=== PATIENT | female | born 1955 | race Caucasian/White ===

== ENCOUNTER 2017-02-01 16:06 | Emergency (ER) | payer SELFPAY ==
[~2017-02-01] VITALS: Ht 167.6 cm; Wt 127.8 kg
[2017-02-01 16:07] VITALS: BP 157/96
== END 2017-02-01 17:59 | disposition home or self-care (01) ==
LOC: ED 17:15
DX: K02.9 Dental caries, unspecified (principal); I10 Essential (primary) hypertension
CPT/HCPCS: 99283

== ENCOUNTER 2018-12-29 11:09 | Emergency (ER) | payer MEDICAID ==
[~2018-12-29] VITALS: Ht 167.6 cm; Wt 120.6 kg
[2018-12-29 12:13] LABS: BASOPHILS # (AUTO) 0.03 x10^3/uL (0-0.1); BASOPHILS % (AUTO) 0 % (0-1); EOSINOPHILS # (AUTO) 0.32 x10^3/uL (0-0.4); EOSINOPHILS % (AUTO) 3 % (1-7); LYMPHOCYTES # (AUTO) 2.51 x10^3/uL (1-3.4); LYMPHOCYTES % (AUTO) 20 % (22-44); MD NO; MEAN CORPUSCULAR HGB CONC 33.2 g/dL (32.4-35.8); MEAN CORPUSCULAR VOLUME 93.3 fL (80-100); MEAN PLATELET VOLUME 8.5 fL (7.4-10.4); MONOCYTES # (AUTO) 0.74 x10^3/uL (0.2-0.8); MONOCYTES % (AUTO) 6 % (2-9); NEUTROPHILS % (AUTO) 72 % (42-75); PLATELET COUNT 213 x10^3/uL (130-400); RED BLOOD COUNT 4.69 x10^6/uL (3.82-5.3); RED CELL DISTRIBUTION WIDTH 13.4 % (9.6-15.2)
--- NOTE | 2018-12-29 12:13 | NUR ---
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
--- NOTE | 2018-12-29 12:22 | NUR ---
PT TO ED FOR PRODUCTIVE COUGH X3 WEEKS. PT STATES COUGHING UP GREEN/YELLOW PHLEGM. PT CONNECTED TO MONITORS. VSS. EDMD PRESENT FOR ASSESSMENT. PIT ORDERS RECEIVED. LABS, CXR AND EKG COMPLETE. AWAITING FURTHER ORDERS.
[2018-12-29 12:30] LABS: ANION GAP 7 mmol/L (5-15); CALCIUM 8.9 mg/dL (8.5-10.1); CHLORIDE 107 mmol/L (98-107); CREATININE 1.04 mg/dL (0.55-1.02)
[2018-12-29 13:15] VITALS: BP 106/69
== END 2018-12-29 13:27 | disposition home or self-care (01) ==
LOC: ED 13:12
DX: J15.9 Unspecified bacterial pneumonia (principal); J41.1 Mucopurulent chronic bronchitis; I10 Essential (primary) hypertension
CPT/HCPCS: 36415; 71046; 80048; 85025; 93005; 99284

== ENCOUNTER 2021-04-09 12:04 | Inpatient (IN) | payer MEDICAID, OTHER ==
[~2021-04-09] VITALS: Ht 167.6 cm; Wt 108.7 kg
--- NOTE | 2021-04-09 12:28 | NUR ---
c/o chest tightness and feeling as she cannot get a deep breath x3 days, had right rotator cuff repair 1 week ago. SPO2 85% RA, + COUGH. PLACED ON 2L NC SPO2 90% NOW. DR CAZARES AT BEDSIDE.
[2021-04-09] MEDS ORDERED: SODIUM CHLORIDE FLUSH 10ML SYR IVF ONE (12:30)
[2021-04-09 12:53] LABS: BASOPHILS % (AUTO) 1 % (0-1); EOSINOPHILS % (AUTO) 0 % (1-7); LYMPHOCYTES % (AUTO) 17 % (22-44); MEAN CORPUSCULAR HEMOGLOBIN 31.2 pg (27.0-34.8); MEAN CORPUSCULAR HGB CONC 34.2 g/dL (32.4-35.8); MEAN PLATELET VOLUME 9.1 fL (7.4-10.4); MONOCYTES % (AUTO) 6 % (2-9); NEUTROPHILS % (AUTO) 76 % (42-75); PLATELET COUNT 154 x10^3/uL (130-400); RED BLOOD COUNT 4.63 x10^6/uL (3.82-5.3); RED CELL DISTRIBUTION WIDTH 13.4 % (9.6-15.2)
[2021-04-09 13:02] LABS: ALBUMIN 2.4 g/dL (3.4-5.0); ANION GAP 13 mmol/L (5-15); CALCIUM 8.1 mg/dL (8.5-10.1); CHLORIDE 98 mmol/L (98-107)
[2021-04-09 13:08] LABS: ALANINE AMINOTRANSFERASE 30 U/L (12-78); ALKALINE PHOSPHATASE 71 U/L (45-117); BILIRUBIN,TOTAL 0.7 mg/dL (0.2-1.0); CREATININE 0.68 mg/dL (0.55-1.02); TOTAL PROTEIN 7.2 g/dL (6.4-8.2); TROPONIN I < 0.015 ng/mL (0.000-0.045)
--- NOTE | 2021-04-09 13:49 | NUR ---
Pt to CT for CTA. Pt requests to take home pain med hydrocodone/apap; Dr Guzman states okay for pt to take home pain med when she returns from CT. Addendum: 04/09/21 at 1352 by DOUG Pt unable to have CTA d/t recent shoulder surgery, immobilizer, unable to position pt correctly for CTA
--- NOTE | 2021-04-09 13:55 | NUR ---
CT DELAY; UNABLE TO MANIPULATE RT ARM TO FIT INTO THE CT GANTRY- TRIED TO CALL ER
[2021-04-09] MEDS ORDERED: MORPHINE SULFATE 4 MG/ML, 1ML ONE (14:16)
[2021-04-09] MEDS: MORPHINE SULFATE 4 MG/ML, 1ML IVPush PRN ×2 (14:22→15:19)
[2021-04-09] MEDS ORDERED: ONDANSETRON 2MG/ML, 2ML IVPush ONE (15:00)
--- NOTE | 2021-04-09 15:07 | NUR ---
pt returned from ct
[2021-04-09] MEDS ORDERED: OMNIPAQUE 350 MG/ML, 100ML BOTTLE ONE (15:16)
[2021-04-09] MEDS ORDERED: ONDANSETRON 2MG/ML, 2ML ONE (15:17)
[2021-04-09] MEDS ORDERED: CEFTRIAXONE 1,000 MG in DEXTROSE 5% 50 ML IVPB ONE (16:00)
[2021-04-09] MEDS ORDERED: DEXAMETHASONE 4 MG/ML, 1ML ONE ×2 (16:28→16:34)
[2021-04-09] MEDS ORDERED: ENALAPRILAT 1.25 MG/ML, 2ML IVPush PRN (16:30)
[2021-04-09] MEDS ORDERED: MELATONIN 5 MG TABLET PO PRN (16:30)
[2021-04-09] MEDS ORDERED: ONDANSETRON 2MG/ML, 2ML IVPush PRN (16:30)
[2021-04-09] MEDS ORDERED: THIAMINE 100MG TABLET PO ONE (16:30)
[2021-04-09] MEDS ORDERED: ONDANSETRON ODT 4 MG PO PRN (16:30)
[2021-04-09] MEDS ORDERED: DEXAMETHASONE 4 MG/ML, 1ML IV ONE (17:00)
[2021-04-09] MEDS ORDERED: AZITHROMYCIN 500 MG in SODIUM CHLORIDE 0.9% 250 ML IV SCH (17:00)
--- NOTE | 2021-04-09 17:07 | NUR ---
Nursing hand-off report given to OBDULIA Chopra; questions answered
[2021-04-09] MEDS: ASCORBIC ACID 500 MG TABLET PO SCH (18:13)
[2021-04-09 19:22] VITALS: BP 110/74
[2021-04-09] MEDS: ENOXAPARIN 40 MG/0.4 ML SQ SCH (20:48)
[2021-04-09] MEDS: FAMOTIDINE 20 MG TABLET PO SCH (20:49)
[2021-04-09] MEDS: INSULIN LISPRO 100 UNITS/ML, PEN SQ-INSULIN SCH (20:49)
[2021-04-10 00:41] VITALS: BP 140/81
[2021-04-10 05:55] LABS: BASOPHILS % (AUTO) 0 % (0-1); EOSINOPHILS % (AUTO) 0 % (1-7); LYMPHOCYTES % (AUTO) 21 % (22-44); MEAN CORPUSCULAR HEMOGLOBIN 31.5 pg (27.0-34.8); MEAN CORPUSCULAR HGB CONC 34.4 g/dL (32.4-35.8); MONOCYTES % (AUTO) 9 % (2-9); NEUTROPHILS % (AUTO) 71 % (42-75); PLATELET COUNT 174 x10^3/uL (130-400); RED BLOOD COUNT 4.36 x10^6/uL (3.82-5.3); RED CELL DISTRIBUTION WIDTH 13.6 % (9.6-15.2)
[2021-04-10 06:04] LABS: ANION GAP 7 mmol/L (5-15); CALCIUM 8.4 mg/dL (8.5-10.1); CHLORIDE 100 mmol/L (98-107); CREATININE 0.61 mg/dL (0.55-1.02)
[2021-04-10 07:54] VITALS: BP 128/78
[2021-04-10] MEDS: CHOLECALCIFEROL 1,000 UNIT TABLET PO SCH (10:09)
[2021-04-10] MEDS: ASCORBIC ACID 500 MG TABLET PO SCH ×2 (10:09→16:17)
[2021-04-10] MEDS: FAMOTIDINE 20 MG TABLET PO SCH ×2 (10:09→22:11)
[2021-04-10] MEDS: DEXAMETHASONE 4 MG/ML, 1ML IVPush SCH (10:09)
[2021-04-10] MEDS: GUAIFENESIN/DM 200-20MG, 10ML UDC PO PRN ×2 (10:09→16:18)
[2021-04-10] MEDS: ZINC SULFATE 220 MG CAPSULE PO SCH (10:10)
[2021-04-10] MEDS: INSULIN LISPRO 100 UNITS/ML, PEN SQ-INSULIN SCH ×4 (10:11→22:11)
[2021-04-10 13:17] VITALS: BP 119/72
[2021-04-10] MEDS ORDERED: REMDESIVIR 200 MG in SODIUM CHLORIDE 0.9% 100 ML IVPB ONE (14:00)
[2021-04-10] MEDS: metFORMIN 500 MG TABLET PO SCH (16:18)
[2021-04-10] MEDS: CEFTRIAXONE 1,000 MG in DEXTROSE 5% 50 ML IVPB SCH (18:27)
[2021-04-10 19:37] VITALS: BP 122/75
[2021-04-10] MEDS: ENOXAPARIN 40 MG/0.4 ML SQ SCH (22:10)
[2021-04-11 01:43] VITALS: BP 128/75
[2021-04-11 05:36] LABS: ALANINE AMINOTRANSFERASE 26 U/L (12-78); ALBUMIN 2.1 g/dL (3.4-5.0); ANION GAP 7 mmol/L (5-15); CHLORIDE 102 mmol/L (98-107); CREATININE 0.59 mg/dL (0.55-1.02)
[2021-04-11 05:38] LABS: ALKALINE PHOSPHATASE 65 U/L (45-117); BILIRUBIN,TOTAL 0.4 mg/dL (0.2-1.0); TOTAL PROTEIN 6.4 g/dL (6.4-8.2)
[2021-04-11] MEDS: metFORMIN 500 MG TABLET PO SCH ×2 (07:29→18:08)
[2021-04-11] MEDS: CHOLECALCIFEROL 1,000 UNIT TABLET PO SCH (07:29)
[2021-04-11] MEDS: ZINC SULFATE 220 MG CAPSULE PO SCH (07:29)
[2021-04-11] MEDS: ASCORBIC ACID 500 MG TABLET PO SCH ×2 (07:29→18:08)
[2021-04-11] MEDS: INSULIN LISPRO 100 UNITS/ML, PEN SQ-INSULIN SCH ×4 (07:29→21:37)
[2021-04-11] MEDS: GUAIFENESIN/DM 200-20MG, 10ML UDC PO PRN (07:29)
[2021-04-11] MEDS: DEXAMETHASONE 4 MG/ML, 1ML IVPush SCH (07:30)
[2021-04-11] MEDS: FAMOTIDINE 20 MG TABLET PO SCH ×2 (07:30→21:37)
[2021-04-11 08:08] VITALS: BP 106/69
[2021-04-11 14:04] VITALS: BP 136/78
[2021-04-11] MEDS: REMDESIVIR 100 MG in SODIUM CHLORIDE 0.9% 100 ML IVPB SCH (18:08)
[2021-04-11] MEDS: CEFTRIAXONE 1,000 MG in DEXTROSE 5% 50 ML IVPB SCH (19:05)
[2021-04-11 19:28] VITALS: BP 116/73
[2021-04-11] MEDS: ENOXAPARIN 40 MG/0.4 ML SQ SCH (21:35)
[2021-04-11] MEDS: INSULIN GLARGINE 100 UNITS/ML, PEN SQ-INSULIN SCH (21:36)
[2021-04-12 01:42] VITALS: BP 121/73
[2021-04-12 05:45] LABS: BASOPHILS % (AUTO) 0 % (0-1); EOSINOPHILS % (AUTO) 0 % (1-7); LYMPHOCYTES % (AUTO) 22 % (22-44); MEAN CORPUSCULAR HEMOGLOBIN 31.3 pg (27.0-34.8); MEAN CORPUSCULAR HGB CONC 34.7 g/dL (32.4-35.8); MEAN PLATELET VOLUME 9.5 fL (7.4-10.4); MONOCYTES % (AUTO) 9 % (2-9); NEUTROPHILS % (AUTO) 69 % (42-75); PLATELET COUNT 244 x10^3/uL (130-400); RED BLOOD COUNT 4.29 x10^6/uL (3.82-5.3); RED CELL DISTRIBUTION WIDTH 13.3 % (9.6-15.2)
[2021-04-12 05:49] LABS: HCT (SEDRATE) 38.9 % (34.6-47.8)
[2021-04-12 05:58] LABS: ALANINE AMINOTRANSFERASE 28 U/L (12-78); ALBUMIN 2.1 g/dL (3.4-5.0); ANION GAP 10 mmol/L (5-15); CALCIUM 8.2 mg/dL (8.5-10.1); CHLORIDE 103 mmol/L (98-107); CREATININE 0.52 mg/dL (0.55-1.02)
[2021-04-12 06:01] LABS: ALKALINE PHOSPHATASE 64 U/L (45-117); BILIRUBIN,TOTAL 0.5 mg/dL (0.2-1.0); TOTAL PROTEIN 6.3 g/dL (6.4-8.2)
[2021-04-12 06:08] LABS: C-REACTIVE PROTEIN, QUANT 2.2 mg/dL (0.02-0.49)
[2021-04-12] MEDS: DEXAMETHASONE 4 MG/ML, 1ML IVPush SCH (07:31)
[2021-04-12] MEDS: FAMOTIDINE 20 MG TABLET PO SCH ×2 (07:31→21:47)
[2021-04-12] MEDS: CHOLECALCIFEROL 1,000 UNIT TABLET PO SCH (07:31)
[2021-04-12] MEDS: metFORMIN 500 MG TABLET PO SCH ×2 (07:31→16:23)
[2021-04-12] MEDS: GUAIFENESIN/DM 200-20MG, 10ML UDC PO PRN ×2 (07:31→16:23)
[2021-04-12] MEDS: ASCORBIC ACID 500 MG TABLET PO SCH ×2 (07:31→16:23)
[2021-04-12] MEDS: ZINC SULFATE 220 MG CAPSULE PO SCH (07:32)
[2021-04-12] MEDS: INSULIN LISPRO 100 UNITS/ML, PEN SQ-INSULIN SCH ×4 (07:40→21:49)
[2021-04-12 08:16] VITALS: BP 96/64
[2021-04-12] MEDS ORDERED: POTASSIUM CHLORIDE 20 MEQ TAB.ER.PRT PO ONE (09:00)
[2021-04-12 14:47] VITALS: BP 128/74
[2021-04-12] MEDS: REMDESIVIR 100 MG in SODIUM CHLORIDE 0.9% 100 ML IVPB SCH (17:50)
[2021-04-12] MEDS: CEFTRIAXONE 1,000 MG in DEXTROSE 5% 50 ML IVPB SCH (19:40)
[2021-04-12] MEDS: ENOXAPARIN 40 MG/0.4 ML SQ SCH (21:47)
[2021-04-12] MEDS: INSULIN GLARGINE 100 UNITS/ML, PEN SQ-INSULIN SCH (21:48)
[2021-04-13 01:22] VITALS: BP 120/73
[2021-04-13 04:20] LABS: BASOPHILS % (AUTO) 0 % (0-1); EOSINOPHILS % (AUTO) 0 % (1-7); LYMPHOCYTES % (AUTO) 21 % (22-44); MEAN CORPUSCULAR HGB CONC 34.3 g/dL (32.4-35.8); MEAN PLATELET VOLUME 8.9 fL (7.4-10.4); MONOCYTES % (AUTO) 10 % (2-9); NEUTROPHILS % (AUTO) 69 % (42-75); PLATELET COUNT 260 x10^3/uL (130-400); RED BLOOD COUNT 4.34 x10^6/uL (3.82-5.3); RED CELL DISTRIBUTION WIDTH 13.4 % (9.6-15.2)
[2021-04-13 04:31] LABS: ALANINE AMINOTRANSFERASE 28 U/L (12-78); ALBUMIN 1.9 g/dL (3.4-5.0); ANION GAP 7 mmol/L (5-15); CHLORIDE 102 mmol/L (98-107); CREATININE 0.49 mg/dL (0.55-1.02)
[2021-04-13 04:38] LABS: ALKALINE PHOSPHATASE 63 U/L (45-117); BILIRUBIN,TOTAL 0.5 mg/dL (0.2-1.0); TOTAL PROTEIN 6.4 g/dL (6.4-8.2)
[2021-04-13 08:08] VITALS: BP 95/61
[2021-04-13] MEDS: INSULIN LISPRO 100 UNITS/ML, PEN SQ-INSULIN SCH ×4 (08:12→21:48)
[2021-04-13] MEDS: FAMOTIDINE 20 MG TABLET PO SCH ×2 (08:14→21:00)
[2021-04-13] MEDS: CHOLECALCIFEROL 1,000 UNIT TABLET PO SCH (08:14)
[2021-04-13] MEDS: ASCORBIC ACID 500 MG TABLET PO SCH ×2 (08:14→17:12)
[2021-04-13] MEDS: MAGNESIUM OXIDE 400 MG TABLET PO SCH ×2 (08:14→21:00)
[2021-04-13] MEDS: metFORMIN 500 MG TABLET PO SCH ×2 (08:14→17:12)
[2021-04-13] MEDS: DEXAMETHASONE 4 MG/ML, 1ML IVPush SCH (08:17)
[2021-04-13] MEDS: ZINC SULFATE 220 MG CAPSULE PO SCH (08:20)
[2021-04-13] MEDS: GUAIFENESIN ER 600 MG TABLET PO SCH ×2 (11:47→21:00)
[2021-04-13 12:59] VITALS: BP 119/73
[2021-04-13] MEDS: REMDESIVIR 100 MG in SODIUM CHLORIDE 0.9% 100 ML IVPB SCH (18:18)
[2021-04-13] MEDS: CEFTRIAXONE 1,000 MG in DEXTROSE 5% 50 ML IVPB SCH (19:40)
[2021-04-13 20:01] VITALS: BP 107/67
[2021-04-13] MEDS: ENOXAPARIN 40 MG/0.4 ML SQ SCH (21:48)
[2021-04-13] MEDS: INSULIN GLARGINE 100 UNITS/ML, PEN SQ-INSULIN SCH (21:49)
[2021-04-14 01:15] VITALS: BP 114/75
[2021-04-14 05:42] LABS: BASOPHILS % (AUTO) 0 % (0-1); EOSINOPHILS % (AUTO) 1 % (1-7); LYMPHOCYTES % (AUTO) 23 % (22-44); MEAN CORPUSCULAR HEMOGLOBIN 31.6 pg (27.0-34.8); MEAN CORPUSCULAR HGB CONC 34.9 g/dL (32.4-35.8); MEAN PLATELET VOLUME 9.1 fL (7.4-10.4); MONOCYTES % (AUTO) 8 % (2-9); NEUTROPHILS % (AUTO) 69 % (42-75); PLATELET COUNT 319 x10^3/uL (130-400); RED CELL DISTRIBUTION WIDTH 13.6 % (9.6-15.2)
[2021-04-14 05:46] LABS: ALBUMIN 2.4 g/dL (3.4-5.0); ANION GAP 9 mmol/L (5-15); CALCIUM 8.7 mg/dL (8.5-10.1); CHLORIDE 100 mmol/L (98-107)
[2021-04-14 05:55] LABS: ALANINE AMINOTRANSFERASE 29 U/L (12-78); ALKALINE PHOSPHATASE 71 U/L (45-117); BILIRUBIN,TOTAL 0.6 mg/dL (0.2-1.0); CREATININE 0.71 mg/dL (0.55-1.02); TOTAL PROTEIN 7.5 g/dL (6.4-8.2)
[2021-04-14] MEDS ORDERED: CETI10CA PO (06:14)
[2021-04-14] MEDS: CHOLECALCIFEROL 1,000 UNIT TABLET PO SCH (08:20)
[2021-04-14] MEDS: metFORMIN 500 MG TABLET PO SCH ×2 (08:20→16:52)
[2021-04-14] MEDS: INSULIN LISPRO 100 UNITS/ML, PEN SQ-INSULIN SCH ×4 (08:20→21:19)
[2021-04-14] MEDS: DEXAMETHASONE 4 MG/ML, 1ML IVPush SCH (08:20)
[2021-04-14] MEDS: ASCORBIC ACID 500 MG TABLET PO SCH ×2 (08:20→16:52)
[2021-04-14] MEDS: MAGNESIUM OXIDE 400 MG TABLET PO SCH ×2 (08:21→21:00)
[2021-04-14] MEDS: ZINC SULFATE 220 MG CAPSULE PO SCH (08:21)
[2021-04-14] MEDS: FAMOTIDINE 20 MG TABLET PO SCH ×2 (08:21→21:20)
[2021-04-14] MEDS: GUAIFENESIN ER 600 MG TABLET PO SCH ×2 (08:21→21:20)
[2021-04-14 09:38] VITALS: BP 101/66
[2021-04-14 13:26] VITALS: BP 96/59
[2021-04-14] MEDS: REMDESIVIR 100 MG in SODIUM CHLORIDE 0.9% 100 ML IVPB SCH (18:01)
[2021-04-14 18:56] VITALS: BP 108/69
[2021-04-14] MEDS: CEFTRIAXONE 1,000 MG in DEXTROSE 5% 50 ML IVPB SCH (19:49)
[2021-04-14] MEDS: ENOXAPARIN 40 MG/0.4 ML SQ SCH (21:19)
[2021-04-14] MEDS: INSULIN GLARGINE 100 UNITS/ML, PEN SQ-INSULIN SCH (21:20)
[2021-04-15 01:43] VITALS: BP 102/67
[2021-04-15] MEDS: INSULIN LISPRO 100 UNITS/ML, PEN SQ-INSULIN SCH ×4 (07:00→22:29)
[2021-04-15] MEDS: CHOLECALCIFEROL 1,000 UNIT TABLET PO SCH (09:00)
[2021-04-15 09:27] LABS: BASOPHILS % (AUTO) 1 % (0-1); EOSINOPHILS % (AUTO) 2 % (1-7); LYMPHOCYTES % (AUTO) 25 % (22-44); MEAN CORPUSCULAR HGB CONC 34.2 g/dL (32.4-35.8); MEAN PLATELET VOLUME 8.7 fL (7.4-10.4); MONOCYTES % (AUTO) 8 % (2-9); NEUTROPHILS % (AUTO) 64 % (42-75); PLATELET COUNT 340 x10^3/uL (130-400); RED CELL DISTRIBUTION WIDTH 13.7 % (9.6-15.2)
[2021-04-15 09:30] VITALS: BP 98/63
[2021-04-15 09:42] LABS: ALANINE AMINOTRANSFERASE 25 U/L (12-78); ALBUMIN 2.2 g/dL (3.4-5.0); ANION GAP 10 mmol/L (5-15); CALCIUM 8.3 mg/dL (8.5-10.1); CHLORIDE 102 mmol/L (98-107); CREATININE 0.72 mg/dL (0.55-1.02)
[2021-04-15 09:51] LABS: ALKALINE PHOSPHATASE 64 U/L (45-117); BILIRUBIN,TOTAL 0.6 mg/dL (0.2-1.0); TOTAL PROTEIN 6.8 g/dL (6.4-8.2)
[2021-04-15] MEDS: ZINC SULFATE 220 MG CAPSULE PO SCH (10:23)
[2021-04-15] MEDS: FAMOTIDINE 20 MG TABLET PO SCH ×2 (10:23→22:25)
[2021-04-15] MEDS: ASCORBIC ACID 500 MG TABLET PO SCH ×2 (10:23→17:55)
[2021-04-15] MEDS: metFORMIN 500 MG TABLET PO SCH ×2 (10:23→17:55)
[2021-04-15] MEDS: GUAIFENESIN ER 600 MG TABLET PO SCH ×2 (10:23→22:25)
[2021-04-15] MEDS: DEXAMETHASONE 4 MG/ML, 1ML IVPush SCH (10:24)
[2021-04-15 14:32] VITALS: BP 103/67
[2021-04-15] MEDS: ACETAMINOPHEN 325 MG TABLET PO PRN (14:40)
[2021-04-15] MEDS: CEFTRIAXONE 1,000 MG in DEXTROSE 5% 50 ML IVPB SCH (19:44)
[2021-04-15 20:55] VITALS: BP 102/63
[2021-04-15] MEDS: ENOXAPARIN 40 MG/0.4 ML SQ SCH (22:25)
[2021-04-15] MEDS: INSULIN GLARGINE 100 UNITS/ML, PEN SQ-INSULIN SCH (22:30)
[2021-04-16 00:18] VITALS: BP 100/64
[2021-04-16 05:35] LABS: ALBUMIN 2.2 g/dL (3.4-5.0); ANION GAP 7 mmol/L (5-15); CALCIUM 8.6 mg/dL (8.5-10.1); CHLORIDE 102 mmol/L (98-107)
[2021-04-16 05:38] LABS: BASOPHILS % (AUTO) 0 % (0-1); EOSINOPHILS % (AUTO) 1 % (1-7); LYMPHOCYTES % (AUTO) 26 % (22-44); MEAN CORPUSCULAR HEMOGLOBIN 31.1 pg (27.0-34.8); MEAN CORPUSCULAR HGB CONC 34.1 g/dL (32.4-35.8); MEAN PLATELET VOLUME 8.9 fL (7.4-10.4); MONOCYTES % (AUTO) 9 % (2-9); NEUTROPHILS % (AUTO) 64 % (42-75); PLATELET COUNT 327 x10^3/uL (130-400); RED BLOOD COUNT 4.32 x10^6/uL (3.82-5.3); RED CELL DISTRIBUTION WIDTH 13.2 % (9.6-15.2)
[2021-04-16 05:44] LABS: CREATININE 0.65 mg/dL (0.55-1.02)
[2021-04-16 05:45] LABS: ALANINE AMINOTRANSFERASE 32 U/L (12-78); ALKALINE PHOSPHATASE 63 U/L (45-117); BILIRUBIN,TOTAL 0.4 mg/dL (0.2-1.0); TOTAL PROTEIN 6.9 g/dL (6.4-8.2)
[2021-04-16] MEDS: INSULIN LISPRO 100 UNITS/ML, PEN SQ-INSULIN SCH ×4 (07:50→21:00)
[2021-04-16] MEDS: metFORMIN 500 MG TABLET PO SCH ×2 (07:50→16:59)
[2021-04-16] MEDS: ASCORBIC ACID 500 MG TABLET PO SCH ×2 (07:51→16:59)
[2021-04-16] MEDS: FAMOTIDINE 20 MG TABLET PO SCH ×2 (07:51→21:06)
[2021-04-16] MEDS: CHOLECALCIFEROL 1,000 UNIT TABLET PO SCH (07:51)
[2021-04-16] MEDS: DEXAMETHASONE 4 MG/ML, 1ML IVPush SCH (07:51)
[2021-04-16] MEDS: GUAIFENESIN ER 600 MG TABLET PO SCH ×2 (07:51→21:07)
[2021-04-16] MEDS: ZINC SULFATE 220 MG CAPSULE PO SCH (07:51)
[2021-04-16 08:52] VITALS: BP 81/53
[2021-04-16 09:04] VITALS: BP 93/60
[2021-04-16 13:28] VITALS: BP 96/63
[2021-04-16] MEDS: ACETAMINOPHEN 325 MG TABLET PO PRN (19:36)
[2021-04-16] MEDS: CEFTRIAXONE 1,000 MG in DEXTROSE 5% 50 ML IVPB SCH (19:36)
[2021-04-16 19:46] VITALS: BP 103/66
[2021-04-16] MEDS: INSULIN GLARGINE 100 UNITS/ML, PEN SQ-INSULIN SCH (21:00)
[2021-04-16] MEDS: ENOXAPARIN 40 MG/0.4 ML SQ SCH (21:06)
[2021-04-17 02:39] VITALS: BP 99/62
[2021-04-17] MEDS: CHOLECALCIFEROL 1,000 UNIT TABLET PO SCH (07:50)
[2021-04-17] MEDS: INSULIN LISPRO 100 UNITS/ML, PEN SQ-INSULIN SCH ×3 (07:50→17:10)
[2021-04-17] MEDS: DEXAMETHASONE 4 MG/ML, 1ML IVPush SCH (07:50)
[2021-04-17] MEDS: GUAIFENESIN ER 600 MG TABLET PO SCH (07:50)
[2021-04-17] MEDS: FAMOTIDINE 20 MG TABLET PO SCH (07:50)
[2021-04-17] MEDS: ASCORBIC ACID 500 MG TABLET PO SCH ×2 (07:51→17:49)
[2021-04-17] MEDS: ZINC SULFATE 220 MG CAPSULE PO SCH (07:51)
[2021-04-17] MEDS: metFORMIN 500 MG TABLET PO SCH ×2 (07:51→17:48)
[2021-04-17] MEDS ORDERED: METF500T17 PO (10:38)
[2021-04-17] MEDS ORDERED: GLIP5TAB10 PO (10:38)
[2021-04-17] MEDS ORDERED: CHOL10003 PO (10:38)
[2021-04-17] MEDS ORDERED: ASCO500T9 PO (10:38)
[2021-04-17] MEDS ORDERED: ZINC220C8 PO (10:38)
[2021-04-17] MEDS ORDERED: DEXA6TAB6 PO (10:38)
[2021-04-17 15:30] VITALS: BP 108/69
[2021-04-17] MEDS: CEFTRIAXONE 1,000 MG in DEXTROSE 5% 50 ML IVPB SCH (18:05)
== END 2021-04-17 18:40 | disposition home or self-care (01) | DRG 177 ==
LOC: ED 15:58 → EDIP 16:03 → 3N 17:43
PROVIDERS: ADMIT Internal Medicine; ATTEND Hospitalist
PROC: XW033E5 Introduction of Remdesivir Anti-infective into Peripheral Vein, Percutaneous Approach, New Technology Group 5 (ICD-10-PCS; principal; 2021-04-10)
DX: U07.1 COVID-19 (principal); J96.01 Acute respiratory failure with hypoxia; J12.82 Pneumonia due to coronavirus disease 2019; I10 Essential (primary) hypertension; E11.65 Type 2 diabetes mellitus with hyperglycemia; E66.9 Obesity, unspecified; Z68.38 Body mass index [BMI] 38.0-38.9, adult; Z88.2 Allergy status to sulfonamides; Z88.1 Allergy status to other antibiotic agents
CPT/HCPCS: 36415; 71045; 71275; 80048; 80053; 82728; 82962; 83036; 83615; 83735; 84145; 84484; 85025; 85379; 85651; 86140; 93005; 99285; G0378; J0696; J1100; J1650; J2405; Q9967; U0005; J1815; J2270; U0003